=== PATIENT | male | born 1985 | race Caucasian/White ===

== ENCOUNTER 2018-06-20 21:00 | Emergency (ER) | payer SELFPAY ==
[~2018-06-20] VITALS: Ht 190.5 cm; Wt 95.5 kg
[2018-06-20 21:14] VITALS: Ht 190.5 cm; Wt 95.5 kg
[2018-06-20 22:21] LABS: BASOPHILS 0.1 % (0-2); EOSINOPHILS 0 % (0-7); HEMATOCRIT 41.4 % (42.0-54.0); HEMOGLOBIN 14.7 g/dL (13.5-17.5); IMMATURE GRANULOCYTES 0.2 % (0-5); LYMPHOCYTES 5.4 % (15-50); MCH 31.3 pg (26.0-34.0); MCHC 35.5 g/dL (31.0-37.0); MCV 88.3 fL (80.0-100.0); MEAN PLATELET VOLUME 10.2 fL (7.4-10.4); MONOCYTES 4.4 % (2-11); NEUTROPHILS 89.9 % (40-80); PLATELET COUNT 213 10x3/uL (130-400); RBC 4.69 10x6/uL (4.20-6.10); RDW 13.5 % (11.5-14.5)
[2018-06-20 22:35] LABS: ALBUMIN 3.8 g/dL (3.4-5.0); ALKALINE PHOSPHATASE 66 U/L (46-116); ALT (SGPT) 22 U/L (10-68); BILIRUBIN - TOTAL 0.63 mg/dL (0.2-1.3); CALC OSMOLALITY 273 mosm/kg (275-300); CALCIUM 9.1 mg/dL (8.5-10.1); CARBON DIOXIDE 27.2 mmol/L (21.0-32.0); CHLORIDE - SERUM 101 mmol/L (98-107); CREATININE - SERUM 1.2 mg/dL (0.6-1.3); GLUCOSE 125 mg/dL (74-106); POTASSIUM - SERUM 3.7 mmol/L (3.5-5.1); PROTEIN - SERUM 7.2 g/dL (6.4-8.2); SODIUM 137 mmol/L (136-145); UREA NITROGEN 11 mg/dL (7-18); eGFR NON AFRICAN AMERICAN 74 mL/min (90-120)
[2018-06-20 22:39] LABS: INR 1.03 (0.85-1.17)
[2018-06-20 22:40] LABS: APTT 31.6 SECONDS (22.8-39.4)
[2018-06-20 22:47] LABS: CKMB 0.5 U/L (0.0-3.6); CREATINE KINASE 84 UL (21-232); MAGNESIUM - SERUM 1.2 mg/dL (1.8-2.4); TROPONIN-I < 0.017 ng/mL (0.000-0.060)
[2018-06-21] MEDS ORDERED: ZPAK PO (01:06)
[2018-06-21] MEDS ORDERED: VOLTAREN75 MG PO (01:06)
[2018-06-21] MEDS ORDERED: STERAPRED 5MG 65 M1 PO (01:06)
[2018-06-21 01:23] VITALS: BP 115/67
== END 2018-06-21 01:24 | disposition home or self-care (01) ==
LOC: D.ER 21:00
PROVIDERS: Family Medicine
DX: R09.1 Pleurisy (principal); R07.9 Chest pain, unspecified; F17.200 Nicotine dependence, unspecified, uncomplicated; R05 Cough